=== PATIENT | male | born 1975 | race African-American/Black ===

== ENCOUNTER 2021-08-22 18:22 | Emergency (ER) | payer OTHER | END 2021-08-22 19:12 | disposition home or self-care (01) | LOC: ERS 18:22 | DX: R00.0 Tachycardia, unspecified (principal); F17.210 Nicotine dependence, cigarettes, uncomplicated; M54.9 Dorsalgia, unspecified; V43.53XA Car driver injured in collision with pick-up truck in traffic accident, initial encounter; M19.90 Unspecified osteoarthritis, unspecified site | CPT/HCPCS: 99284 ==

== ENCOUNTER 2023-03-30 17:38 | Emergency (ER) | payer OTHER ==
[~2023-03-30 17:38] MED LIST: Iopamidol-370 76% 500 ML MDV (1 ML CHARGE) ONE
[2023-03-30 18:30] LABS: #Monocytes 0.8 thou/uL (0.11-0.59); #Neutrophils 2.7 thou/uL (1.40-6.50); %Basophils 0.2 % (0.0-1.0); %Eosinophils 0.2 % (0.0-10.0); %Lymphocytes 27.6 % (21.0-51.0); %Monocytes 15.5 % (0.0-10.0); %Neutrophils 56.3 % (42.0-75.0); Hemoglobin 13.5 g/dL (14.0-18.0); Mean Corpuscular HGB CONC 35.5 g/dL (32.0-36.0); Mean Corpuscular Hemoglobin 38.6 pg (27.0-31.0); Mean Corpuscular Volume 108.6 fl (78.0-98.0); Mean Platelet Volume 9.7 fL (7.4-10.4); Platelet Count 127 10x3/uL (130-400); RBC Distribution Width 11.6 % (11.5-14.5); White Blood Cell (WBC) Count 4.9 10x3/uL (4.8-10.8)
[2023-03-30] MEDS ORDERED: Thiamine HCl 200 MG/2 ML VIAL ONE (18:52)
[2023-03-30 19:03] LABS: Acetaminophen Less than 10 mcg/mL (10.0-30.0); Lipase 99 U/L (8-78); Salicylate Less than 8.0 mg/dL (15.0-30.0)
[2023-03-30 19:04] LABS: ALT (SGPT) 46 U/L (8-55); AST (SGOT) 110 U/L (5-34); Albumin 4.1 g/dL (3.5-5.0); Alkaline Phosphatase 162 U/L (40-110); Anion Gap 17 mmol/L (10-20); BUN (Urea Nitrogen) 10 mg/dL (8.9-20.6); Bilirubin, Total 0.5 mg/dL (0.2-1.2); Calc. Creatinine Clearance 0 mL/min (70-130); Calcium 9.4 mg/dL (7.8-10.44); Carbon Dioxide 29 mmol/L (22-29); Chloride 102 mmol/L (98-107); Estimated GFR 112; Globulin 4.3 g/dL (2.4-3.5); Glucose 103 mg/dL (70-105); Potassium 3.2 mmol/L (3.5-5.1); Protein, Total 8.4 g/dL (6.0-8.3); Sodium 145 mmol/L (136-145)
[2023-03-30] MEDS ORDERED: Potassium Chloride 20 MEQ TAB ONE (22:35)
[2023-03-31 01:41] LABS: Bacteria/HPF None Seen HPF (None Seen); Bilirubin Negative (Negative); Blood, Urine Negative (Negative); CAUTI Indications for Culture Dysuria,urgency,freq; Clarity Clear (Clear); Glucose, Urine (Dipstick) Normal (Negative); Ketone, Urine Negative (Negative); Leukocyte Negative Leu/uL (Negative); Nitrite Negative (Negative); Protein, Urine (Dipstick) Negative (Neg-Trace); RBC/HPF 0-3 HPF (0-3); Squamous Epithelial 0-3 HPF (0-3); WBC/HPF 0-3 HPF (0-3); pH, Urine 6.5 (5.0-9.0)
[2023-03-31 01:42] LABS: Specific Gravity, Urine Greater than 1.060 (1.002-1.036)
[2023-03-31 01:43] LABS: Urine Culture Reflex No No
[2023-03-31 01:44] LABS: Amphetamine Not Detected (NotDetected); Barbiturates Screen Not Detected (NotDetected); Benzodiazepine Screen Not Detected (NotDetected); Cocaine Metabolite Screen Not Detected (NotDetected); Methadone Not Detected (NotDetected); Methamphetamine Not Detected (NotDetected); Opiate Screen Not Detected (NotDetected); Oxycodone Screen Not Detected (NotDetected); Phencyclidine (PCP) Not Detected (NotDetected); THC/Cannabinoid Screen Not Detected (NotDetected); Tricyclic Screen Not Detected (NotDetected)
== END 2023-03-31 06:22 | disposition home or self-care (01) ==
LOC: ERS 17:38
DX: R10.9 Unspecified abdominal pain (principal); R10.812 Left upper quadrant abdominal tenderness; R10.814 Left lower quadrant abdominal tenderness; F10.129 Alcohol abuse with intoxication, unspecified; K76.0 Fatty (change of) liver, not elsewhere classified; E87.6 Hypokalemia; M24.851 Other specific joint derangements of right hip, not elsewhere classified; M54.40 Lumbago with sciatica, unspecified side; Q76.2 Congenital spondylolisthesis; M48.00 Spinal stenosis, site unspecified; F17.210 Nicotine dependence, cigarettes, uncomplicated
CPT/HCPCS: 36415; 74177; 80053; 80306; 80307; 81001; 83690; 85025; 85610; 85730; 96374; J3411; Q9967